=== PATIENT | male | born 1945 | race Hispanic/Latino ===

== ENCOUNTER 2017-09-15 05:50 | Day surgery (SDC) | payer OTHER, MEDICARE ==
[~2017-09-15] VITALS: Ht 157.5 cm; Wt 64.4 kg
[~2017-09-15 05:50] MED LIST: LEVO50TA11 PO; MECL-111 PO; SIMV10TA6 PO
[2017-09-15 06:28] VITALS: BP 145/74
[2017-09-15] MEDS ORDERED: SODIUM CHLORIDE 0.9% 1000ML 1,000 ML IV ONE (06:51)
[2017-09-15] MEDS ORDERED: LIDOCAINE HCL 1% 20 ML VIAL ONE (07:32)
[2017-09-15] MEDS ORDERED: PROPOFOL 1000 MG/100 ML 100 ML IV ONE (07:33)
[2017-09-15] MEDS ORDERED: GLYCOPYRROLATE 0.2 MG/ML 5 ML VIAL ONE (07:33)
[2017-09-15 07:55] VITALS: BP 111/68
== END 2017-09-15 08:15 | disposition home or self-care (01) ==
LOC: DAH 05:50 → ENDO 05:50
PROVIDERS: ATTEND Internal Medicine Gastroenterology
DX: Z09 Encounter for follow-up examination after completed treatment for conditions other than malignant neoplasm (principal); Z86.010 Personal history of colon polyps; Z68.28 Body mass index [BMI] 28.0-28.9, adult; E78.5 Hyperlipidemia, unspecified; Z85.828 Personal history of other malignant neoplasm of skin; E03.9 Hypothyroidism, unspecified; Z86.73 Personal history of transient ischemic attack (TIA), and cerebral infarction without residual deficits; Z79.899 Other long term (current) drug therapy; I10 Essential (primary) hypertension
CPT/HCPCS: 45378; A4606; J2704; J3490; J7030

== ENCOUNTER → 2025-01-10 | Outpatient (CLI) | payer OTHER, MEDICARE ==
[~2025-01-10] MED LIST changes: -MECL-111 PO; +MECL-302 PO; -SIMV10TA6 PO; +SIMV10TA97 PO
--- NOTE | 2025-01-11 10:23 | HMCIMG ---
EXAM: MRI Face without IV Contrast. CLINICAL HISTORY: Soft tissue mass lesion. TECHNIQUE: Multiplanar multi-sequence MRI of the face. CONTRAST: None. COMPARISON: None provided. FINDINGS: There is a solid, well-defined mass lesion appearing hypointense on T1-weighted images and mildly hyperintense on T2-weighted images in the right lower mandibular region laterally. The lesion involves the skin, underlying soft tissue, and extends up to the buccal mucosa. There is suspicion of marrow edema of the adjacent body of the right mandible (limited evaluation due to motion artifacts). No fracture. Symmetrical facial soft tissues without abnormal signals or mass. The bilateral orbits and orbital contents are within normal limits. Minimal pansinusitis. Nasal cavities and nasopharynx are unremarkable. The bilateral parotid and submandibular glands are unremarkable. The bilateral mastoid air cells are clear. The imaged portions of the intracranial substances are grossly unremarkable. IMPRESSION: 1. Neoplastic lesion in the right lower mandibular region as described. Further evaluation with a post-contrast study is recommended. /[place]
== END | disposition home or self-care (01) ==
LOC: RAH 12:49
PROVIDERS: ATTEND Family Medicine
DX: M79.89 Other specified soft tissue disorders (principal); Z85.89 Personal history of malignant neoplasm of other organs and systems
CPT/HCPCS: 70540